=== PATIENT | male | born 1970 | race Two or more races ===

== ENCOUNTER → 2019-10-02 | Outpatient (CLI) | payer BC ==
[~2019-10-02] MED LIST: BLOOD PRESSURE MED; ISOMON30 PO; LISI5 PO
[2019-10-02 19:46] LABS: PSA, Free 0.105 ng/mL
[2019-10-02 19:47] LABS: PSA, %Free 33.8 %; Prostate Specific Antigen 0.311 ng/mL (0.000-4.000)
== END ==
LOC: LAB EV 17:29 → LAB SHORT 17:29
PROVIDERS: Emergency Medicine
DX: R31.9 Hematuria, unspecified (principal)
CPT/HCPCS: 84153; 84154

== ENCOUNTER 2021-05-25 07:26 | Day surgery (SDC) | payer BC ==
[~2021-05-25] VITALS: Ht 177.8 cm; Wt 86.6 kg
[~2021-05-25 07:26] MED LIST changes: +HYDROCODONE-AC1 EA13; +MULTI-VITAMIN1 EAC2
== END 2021-05-25 10:17 | disposition home or self-care (01) ==
LOC: ORSCSDS 07:26
DX: Z12.11 Encounter for screening for malignant neoplasm of colon (principal); K63.5 Polyp of colon; K62.1 Rectal polyp; I10 Essential (primary) hypertension; E78.5 Hyperlipidemia, unspecified; G47.33 Obstructive sleep apnea (adult) (pediatric); F32.9 Major depressive disorder, single episode, unspecified
CPT/HCPCS: 88305; 93005; 93010; J2704; J7120

== ENCOUNTER 2022-09-07 16:06 | Emergency (ER) | payer OTHER, BC ==
[~2022-09-07] VITALS: Ht 177.8 cm; Wt 95.2 kg
[2022-09-07] MEDS ORDERED: HYDR1TAB94 PO (17:51)
== END 2022-09-07 18:06 | disposition home or self-care (01) ==
LOC: ER 16:06
DX: S00.83XA Contusion of other part of head, initial encounter (principal); S80.02XA Contusion of left knee, initial encounter; V53.9XXA Unspecified occupant of pick-up truck or van injured in collision with car, pick-up truck or van in traffic accident, initial encounter; I10 Essential (primary) hypertension
CPT/HCPCS: 70450; 70486; 71045; 72125; 73562-LT; J2405; J3010

== ENCOUNTER 2024-08-17 07:57 | Day surgery (SDC) | payer BC ==
[~2024-08-17] VITALS: Ht 177.8 cm; Wt 113.0 kg
[~2024-08-17 07:57] MED LIST changes: +AMLO10 PO; +HYDR1TAB94 PO; -HYDROCODONE-AC1 EA13; +Lactated Ringer's 1,000 ML IV ONE; +Norco 5-325 Ta1 EACH PO; +ZANAFLEX PO
[2024-08-17] MEDS ORDERED: Lactated Ringer's 1,000 ML IV ONE (08:11)
[2024-08-17] MEDS ORDERED: propofoL 20 ML IV ONE (08:12)
[2024-08-17] MEDS ORDERED: FentaNYL Citrate 50 MCG/ML 2 ML Injection ONE (08:12)
[2024-08-17] MEDS ORDERED: Ondansetron HCl 2 MG / ML 2ML Vial ONE (08:13)
[2024-08-17] MEDS ORDERED: Dexamethasone Sod Phos 10 MG/ML 1ML VIAL ONE (08:13)
[2024-08-17] MEDS ORDERED: Ketorolac Tromethamine 30mg Vial ONE (08:13)
[2024-08-17] MEDS ORDERED: SUMA25 PO (08:23)
[2024-08-17] MEDS ORDERED: Midazolam HCl 1MG / ML 2ML Vial ONE (08:49)
[2024-08-17] MEDS ORDERED: CeFAZolin Sodium 2,000 MG VIAL ONE (08:51)
[2024-08-17] MEDS ORDERED: NS 50 ML IV ONE (08:51)
[2024-08-17] MEDS ORDERED: Lidocaine HCl 1% 20 ML MDV INJ ONE (10:14)
[2024-08-17 10:57] VITALS: BP 146/88
[2024-08-17] MEDS ORDERED: HYDROcodone 5-APAP 325 TAB ONE (10:57)
== END 2024-08-17 11:29 | disposition home or self-care (01) ==
LOC: ORSCSDS 07:57
PROVIDERS: Orthopaedic Surgery
PROC: 01S40ZZ Reposition Ulnar Nerve, Open Approach (ICD-10-PCS; principal; 2024-08-17 09:15)
PROC: 01N50ZZ Release Median Nerve, Open Approach (ICD-10-PCS; principal; 2024-08-17 09:15)
DX: G56.03 Carpal tunnel syndrome, bilateral upper limbs (principal); G56.23 Lesion of ulnar nerve, bilateral upper limbs; I10 Essential (primary) hypertension; K21.9 Gastro-esophageal reflux disease without esophagitis; G47.33 Obstructive sleep apnea (adult) (pediatric); E66.9 Obesity, unspecified; Z68.35 Body mass index [BMI] 35.0-35.9, adult; F41.9 Anxiety disorder, unspecified; F32.A Depression, unspecified; E78.5 Hyperlipidemia, unspecified; K76.0 Fatty (change of) liver, not elsewhere classified; Z79.899 Other long term (current) drug therapy; Z98.84 Bariatric surgery status
CPT/HCPCS: A9270; J0690; J1100; J1885; J2250; J2405; J2704; J3010; J7120

== ENCOUNTER 2024-11-09 09:20 | Day surgery (SDC) | payer BC ==
[~2024-11-09] VITALS: Ht 177.8 cm; Wt 114.9 kg
[~2024-11-09 09:20] MED LIST changes: -Lactated Ringer's 1,000 ML IV ONE; +SUMA25 PO
[2024-11-09] MEDS ORDERED: CeFAZolin Sodium 2,000 MG VIAL ONE (09:23)
[2024-11-09] MEDS ORDERED: CYMBALTA30 M2 PO (10:04)
[2024-11-09] MEDS ORDERED: AMIT50 PO (10:05)
[2024-11-09] MEDS ORDERED: Lactated Ringer's 1,000 ML IV ONE ×2 (10:48→13:30)
[2024-11-09] MEDS ORDERED: propofoL 20 ML IV ONE (11:19)
[2024-11-09] MEDS ORDERED: Dexamethasone Sod Phos 10 MG/ML 1ML VIAL ONE (11:20)
[2024-11-09] MEDS ORDERED: FentaNYL Citrate 50 MCG/ML 2 ML Injection ONE ×2 (11:20→13:06)
[2024-11-09] MEDS ORDERED: Ondansetron HCl 2 MG / ML 2ML Vial ONE (11:20)
[2024-11-09] MEDS ORDERED: Ketorolac Tromethamine 30mg Vial ONE (11:20)
[2024-11-09] MEDS ORDERED: Ropivacaine 0.5% HCL/PF 5 MG/ML 30ML Vial ONE (11:22)
[2024-11-09 14:28] VITALS: BP 134/81
== END 2024-11-09 15:00 | disposition home or self-care (01) ==
LOC: ORSCSDS 09:20
PROVIDERS: Orthopaedic Surgery
PROC: 01X40Z4 Transfer Ulnar Nerve to Ulnar Nerve, Open Approach (ICD-10-PCS; principal; 2024-11-09 10:45)
PROC: 01N50ZZ Release Median Nerve, Open Approach (ICD-10-PCS; principal; 2024-11-09 10:45)
DX: G56.02 Carpal tunnel syndrome, left upper limb (principal); G56.22 Lesion of ulnar nerve, left upper limb; I10 Essential (primary) hypertension; G47.33 Obstructive sleep apnea (adult) (pediatric); E78.5 Hyperlipidemia, unspecified; K21.9 Gastro-esophageal reflux disease without esophagitis; F32.A Depression, unspecified; Z98.84 Bariatric surgery status; Z79.899 Other long term (current) drug therapy
CPT/HCPCS: J0690; J1100; J1885; J2405; J2704; J2795; J3010; J7120